=== PATIENT | female | born 1990 | race Caucasian/White ===

== ENCOUNTER → 2017-02-14 | Outpatient (CLI) | payer BC ==
[~2017-02-14] MED LIST: FRRS300 PO; MTR600X PO; OXYC-57 PO; PRENTAB26 PO
[2017-02-14 13:03] LABS: BASO % 0.2 %; BASO ABS # 0.02 K/uL (0-0.2); HEMATOCRIT 33.4 % (37-47); IG% 0.4 %; LYMPH % 17.4 %; LYMPH ABS # 2.18 K/uL (1.2-3.4); MEAN CELL VOLUME 73.6 fL (80-100); MEAN CORPUSCULAR HEMOGLOBIN 22.2 pg (25-34); MEAN CORPUSCULAR HGB CONC 30.2 g/dl (32-36); MEAN PLATELET VOLUME 8.1 fL (7.4-10.4); MONO % 6.6 %; NEUT % 74.4 %; PLATELET COUNT 321 K/uL (130-400); RED BLOOD COUNT 4.54 M/uL (4.2-5.4); WHITE BLOOD COUNT 12.52 K/uL (4.8-10.8)
[2017-02-14 13:22] LABS: COMPLETE YES
== END | disposition home or self-care (01) ==
LOC: C.LAB 12:34
PROVIDERS: ATTEND Obstetrics & Gynecology
DX: Z01.812 Encounter for preprocedural laboratory examination (principal)

== ENCOUNTER 2017-02-15 05:37 | Inpatient (IN) | payer BC ==
[2017-02-15] VITALS (14 sets, daily range): BP systolic 108–122; BP diastolic 68–75; PULSE 85–93; TEMP 36.7–37; O2SAT 96–100; Ht 170.2 cm; Wt 117.9 kg
[~2017-02-15] VITALS: Ht 170.2 cm; Wt 117.9 kg
[~2017-02-15 05:37] MED LIST changes: -FRRS300 PO; -MTR600X PO; -OXYC-57 PO; +PATIENT'S ALLERGY INFO NEEDS ENTERED SCH; -PRENTAB26 PO
[2017-02-15] MEDS ORDERED: CITRIC ACID/SODIUM CITRATE 15 ML UDC PO STA (05:51)
[2017-02-15] MEDS ORDERED: CEFAZOLIN IV 3,000 MG in DEXTROSE 5% 50ML IV SCH (06:00)
[2017-02-15] MEDS ORDERED: LACTATED RINGER'S 1000ML 1,000 ML IV SCH ×2 (06:00→08:54)
[2017-02-15] MEDS ORDERED: CEFAZOLIN IV 3,000 MG in DEXTROSE 5% 50ML 50 ML IV SCH (06:00)
[2017-02-15] MEDS ORDERED: CITRIC ACID/SODIUM CITRATE 15 ML UDC PO SCH (06:00)
[2017-02-15] MEDS ORDERED: PRENTAB26 PO (06:08)
[2017-02-15] MEDS: LACTATED RINGER'S 1000ML 1,000 ML IV SCH ×3 (06:47→07:44)
[2017-02-15 06:49] LABS: BASO % 0.3 %; BASO ABS # 0.03 K/uL (0-0.2); EOS % 1.3 %; HEMATOCRIT 29.7 % (37-47); IG% 0.5 %; LYMPH % 20.5 %; LYMPH ABS # 2.36 K/uL (1.2-3.4); MEAN CELL VOLUME 73.7 fL (80-100); MEAN CORPUSCULAR HEMOGLOBIN 22.3 pg (25-34); MEAN CORPUSCULAR HGB CONC 30.3 g/dl (32-36); MEAN PLATELET VOLUME 8.3 fL (7.4-10.4); NEUT % 71.4 %; PLATELET COUNT 292 K/uL (130-400); RED BLOOD COUNT 4.03 M/uL (4.2-5.4)
[2017-02-15] MEDS ORDERED: MoRPHine SULFATE PF 1 MG/ML 10 ML AMP/VIAL ONE (07:12)
[2017-02-15] MEDS ORDERED: SODIUM CHLORIDE 0.9% 1000ML 1,000 ML IV PRN (07:22)
[2017-02-15] MEDS ORDERED: NALOXONE HCL INJ 1 MG in SODIUM CHLORIDE 0.9% 1000ML 1,000 ML IV PRN ×4 (07:22)
[2017-02-15] MEDS ORDERED: NALOXONE HCL INJ 0.08 MG in SYRINGE 1.8 ML IV PRN (07:22)
[2017-02-15] MEDS ORDERED: LACTATED RINGER'S 1000ML 500 ML IV PRN (07:22)
[2017-02-15] MEDS ORDERED: NALOXONE HCL 0.4 MG/1 ML VIAL/CARP IV PRN (07:30)
[2017-02-15] MEDS ORDERED: PHENYLEPHRINE 100MCG/ML 5ML SYR IV PRN (07:30)
[2017-02-15] MEDS ORDERED: EpHEDrine SULFATE INJ 50 MG/ML AMP IV PRN ×2 (07:30)
[2017-02-15] MEDS ORDERED: ONDANSETRON INJ 2 MG/ML 2 ML VIAL IV PRN ×2 (07:30)
[2017-02-15] MEDS ORDERED: DiphenhydrAMINE HCL 50 MG/ML VIAL IV PRN (07:30)
[2017-02-15] MEDS ORDERED: PROMETHAZINE HCL INJ 12.5 MG in SODIUM CHLORIDE 0.9% 50ML 50 ML IV PRN (07:30)
[2017-02-15] MEDS ORDERED: ATROPINE SULFATE 0.1 MG/ML 5ML SYR IV PRN (07:30)
[2017-02-15] MEDS ORDERED: NALBUPHINE HCL INJ 10 MG/ML AMP IV PRN (07:30)
[2017-02-15] MEDS ORDERED: MoRPHine SULFATE PF 1 MG/ML 10 ML AMP/VIAL EPI PRN (07:30)
[2017-02-15] MEDS ORDERED: MEPERIDINE HCL 25 MG/ML CARP IV PRN ×2 (07:30)
[2017-02-15] MEDS ORDERED: KETOROLAC TROMETHAMINE 30 MG/ML VIAL IV. PRN (07:30)
[2017-02-15] MEDS ORDERED: NO NARCOTICS OR SEDATIVES SCH (07:30)
[2017-02-15] MEDS ORDERED: PROMETHAZINE HCL INJ 25 MG in SODIUM CHLORIDE 0.9% 50ML 50 ML IV PRN (07:30)
[2017-02-15 07:56] LABS: COMPLETE YES
[2017-02-15] MEDS ORDERED: ONDANSETRON INJ 2 MG/ML 2 ML VIAL ONE (07:58)
[2017-02-15] MEDS ORDERED: OXYTOCIN INJ 10 UNITS/ML VIAL ONE ×3 (07:58→08:42)
[2017-02-15] MEDS ORDERED: PROPOFOL IV EMULSION 10 MG/ML 20 ML VIAL IV ONE (07:58)
[2017-02-15] MEDS ORDERED: METOCLOPRAMIDE HCL INJ 5 MG/ML 2 ML VIAL ONE (07:58)
--- NOTE | 2017-02-15 08:59 | [facility] Post Operative Brief Note ---
Immediate Operative Summary Operative Date Feb 15, 2017. Pre-Operative Diagnosis 1. Elective primary caesarean section for suspected macrosomia Post-Operative Diagnosis same Procedure(s) Performed Primary caesarean section with the of a live male child at 0759. Surgeon Dr. Mayorga Pharmacist Critical Care Surgeon(s) Dr. Armstrong Estimated Blood Loss 600 Findings Baby cephalic Normal uterus fallopian tubes and ovaries Specimens A: Placenta-exam B: cord blood Drains montoya 375 Anesthesia Spinal Complication(s) None Disposition L&D
[2017-02-15] MEDS ORDERED: HYDROCORTISONE ACETATE 25 MG SUPP PR PRN (09:00)
[2017-02-15] MEDS: SIMETHICONE 80 MG CHEW PO SCH ×4 (09:00→20:25)
[2017-02-15] MEDS ORDERED: SENNA 8.6 MG TAB PO PRN (09:00)
[2017-02-15] MEDS ORDERED: BENZOCAINE 20% AER SPR 82.5 GM CAN EXT PRN (09:00)
[2017-02-15] MEDS ORDERED: SUPERCREAM 0.870 % 15GM JAR EXT PRN (09:00)
[2017-02-15] MEDS ORDERED: LANOLIN OINT EXT PRN ×2 (09:00)
[2017-02-15] MEDS ORDERED: MEASLES, MUMPS & RUBELLA VIRUS VIAL SQ. ONE (09:00)
[2017-02-15] MEDS ORDERED: DIPHTHERIA/TETANUS/PERTUSSIS 0.5 ML SYR/VIAL IM. ONE (09:00)
[2017-02-15] MEDS ORDERED: MAGNESIUM HYDROXIDE SUSP 30 ML UDC PO PRN (09:00)
[2017-02-15] MEDS: OXYTOCIN INJ 20 UNITS in LACTATED RINGER'S 1000ML 1,000 ML IV SCH ×2 (09:25→18:59)
--- NOTE | 2017-02-15 10:26 | OPERATIVE REPORT ---
DATE OF OPERATION: 02/15/2017 PREOPERATIVE DIAGNOSIS: The patient is a 27-year-old at 39 weeks and 4 days of gestation with suspected macrosomia, desires primary section. POSTOPERATIVE DIAGNOSIS: Same. PROCEDURE: Primary low transverse with Pfannenstiel skin incision. SURGEON: Dr. Batista. BUSINESS SERVICES ASSOCIATE: Dr. Armstrong. ESTIMATED BLOOD LOSS: 600. FLUIDS: 3100 mL of lactated ringer. URINE: Lee drained 375 mL of urine. ANESTHESIA: Spinal, Dr. Limon. COMPLICATIONS: None. FINDINGS: Baby was a viable male delivered at 7:59 a.m. in cephalic presentation, Apgars 8/9. Weight is 4205 grams. Maternal findings: Morbid obesity, normal uterus, fallopian tubes and ovaries. DESCRIPTION OF PROCEDURE: The patient was taken to the operating room where spinal anesthesia was given without difficulty. She was placed in dorsal supine position with a leftward tilt. She was prepared and draped in the usual sterile fashion. A Pfannenstiel skin incision was made and carried through to the underlying layer of fascia with the Bovie. Fascia was incised in the midline and incision extended laterally with the help of Sutherland scissors. Lower aspect of the fascial incision was then grasped with 2 long Marty clamps, elevated, underlying rectus muscles were dissected off sharply with Sutherland scissors and upper aspect of the fascial incision was then grasped with 2 long Marty clamps, elevated, underlying rectus muscles were dissected off sharply with Sutherland scissors. Rectus muscles were in the midline and peritoneum was entered bluntly. Peritoneal incision was extended superiorly and inferiorly with good visualization of the bladder. Bladder blade was inserted. Vesicouterine peritoneum was identified, grasped with pickups, elevated and entered sharply with Metzenbaum scissors and bladder flap was created digitally and bladder blade was reinserted. Lower uterine segment was incised in transverse fashion and incision was extended laterally with the help of fingers. Membranes were ruptured. Clear fluid was obtained and the baby's head was brought to the incision and delivered without difficulty. Shoulders were delivered with minimal traction. Baby was cleaned and dried. Cord clamp was done delayed at 1 minute and cut. The baby was handed to the awaiting carpet installation specialist. Cord blood was obtained and placenta was delivered manually as intact and complete. The uterus was exteriorized and cleared of all clots and debris. The incision was repaired with 0 Vicryl in a running locked fashion. A second imbricating layer was placed on the incision with 0 Vicryl in a running locked fashion. Excellent hemostasis was achieved. The uterus was a returned to the abdomen and pelvis was irrigated with warm normal saline and suctioned. Incision was checked to be hemostatic again. Parietal peritoneum was reapproximated with 3-0 Vicryl in a running fashion. The rectus muscles were checked to be hemostatic. Then the rectus fascia was reapproximated with #1 Vicryl in a running fashion starting from both corners and meeting in the midline. The subcuticular fat tissue was reapproximated with 2-0 plain catgut with large needle with single interrupted stitches. The skin was closed with 4-0 Monocryl in a subcuticular fashion. The patient tolerated the procedure well. Sponge, lap, needle and instrument counts were correct x3. She was given 3 grams of cefazolin before surgery. She was taken to the recovery room in stable condition. No complications happened and I was present during whole procedure. I attest to the content of the Intraoperative Record and any orders documented therein. Any exceptions are noted below. ADDY
[2017-02-15] MEDS ORDERED: CEFAZOLIN IV 3,000 MG in DEXTROSE 5% 50ML 50 ML IV ONE (15:00)
--- NOTE | 2017-02-15 16:40 | Anesthesiology Progress Note ---
Anesthesia Post Op Note Date & Time Feb 15, 2017 at 16:39 Vital Signs Pain Intensity: 0.0 Vital Signs Past 12 Hours Date Time Temp Pulse Resp B/P Pulse Ox O2 Delivery O2 Flow Rate FiO2 02/15/17 14:15 18 97 02/15/17 13:15 16 96 02/15/17 12:15 18 99 02/15/17 11:15 18 99 02/15/17 11:15 99 Room Air 02/15/17 11:15 36.7 87 18 111/68 99 Room Air Notes Mental Status: alert / awake / arousable, participated in evaluation Pt Amnestic to Procedure: Yes Nausea / Vomiting: adequately controlled Pain: adequately controlled Airway Patency, RR, SpO2: stable & adequate BP & HR: stable & adequate Hydration State: stable & adequate Anesthetic Complications: no major complications apparent
[2017-02-15] MEDS: KETOROLAC TROMETHAMINE 30 MG/ML VIAL IV. PRN ×2 (17:34→23:18)
[2017-02-15] MEDS: FERROUS SULFATE 325 MG TAB PO SCH (20:25)
[2017-02-15] MEDS: DOCUSATE SODIUM 100 MG CAP PO SCH (20:28)
[2017-02-16] MEDS ORDERED: DC INTRASPINAL MORPHINE SCH
[2017-02-16 00:01] VITALS: O2SAT 98
[2017-02-16] MEDS ORDERED: MEPERIDINE HCL 50 MG/ML CARP IV PRN (00:01)
[2017-02-16] MEDS ORDERED: KETOROLAC TROMETHAMINE 30 MG/ML VIAL IV. PRN (00:01)
[2017-02-16] MEDS ORDERED: DiphenhydrAMINE HCL 50 MG/ML VIAL IV PRN (00:01)
[2017-02-16] MEDS ORDERED: MEPERIDINE HCL 75 MG/ML CARP IV PRN (00:01)
[2017-02-16] MEDS ORDERED: ONDANSETRON INJ 2 MG/ML 2 ML VIAL IV PRN (00:01)
[2017-02-16] MEDS ORDERED: PROMETHAZINE HCL INJ 25 MG in SODIUM CHLORIDE 0.9% 50ML 50 ML IV PRN (00:01)
[2017-02-16] MEDS ORDERED: ZOLPIDEM TARTRATE 5 MG TAB PO PRN (00:01)
[2017-02-16] MEDS ORDERED: OXYCODONE/ACETAMINOPHEN 5-325 TAB PO PRN (00:01)
[2017-02-16 04:20] VITALS: BP 116/77; PULSE 94; TEMP 36.7; O2SAT 97
[2017-02-16] MEDS: OXYCODONE/ACETAMINOPHEN 5-325 TAB PO PRN ×5 (04:44→21:33)
[2017-02-16] MEDS: IBUPROFEN 600 MG TAB PO PRN ×5 (04:44→21:32)
[2017-02-16 07:28] LABS: BASO % 0.1 %; BASO ABS # 0.02 K/uL (0-0.2); EOS % 0.9 %; HEMATOCRIT 26.7 % (37-47); IG% 0.4 %; LYMPH % 14.1 %; MEAN CELL VOLUME 74.8 fL (80-100); MEAN CORPUSCULAR HEMOGLOBIN 22.1 pg (25-34); MEAN CORPUSCULAR HGB CONC 29.6 g/dl (32-36); MEAN PLATELET VOLUME 8.2 fL (7.4-10.4); NEUT % 77.5 %; PLATELET COUNT 245 K/uL (130-400); RED BLOOD COUNT 3.57 M/uL (4.2-5.4); WHITE BLOOD COUNT 13.52 K/uL (4.8-10.8)
[2017-02-16 07:54] LABS: COMPLETE YES
[2017-02-16 08:00] VITALS: BP 101/68; PULSE 80; TEMP 36.8
[2017-02-16] MEDS ORDERED: FERROUS SULFATE 325 MG TAB PO SCH (08:00)
[2017-02-16] MEDS: FERROUS SULFATE 325 MG TAB PO SCH ×2 (08:09→19:49)
[2017-02-16] MEDS: DOCUSATE SODIUM 100 MG CAP PO SCH ×2 (08:09→19:49)
[2017-02-16] MEDS: SIMETHICONE 80 MG CHEW PO SCH ×4 (08:10→19:49)
[2017-02-16] MEDS: PRENATAL VITAMIN TAB PO SCH (08:59)
--- NOTE | 2017-02-16 10:22 | OB/GYN Progress Note ---
H[employer] INSPECTOR Progress Note Date of Service Feb 16, 2017. Subjective conversation w/ patient, physical exam Ambulation: ambulating normally Voiding: no voiding problems Diet Tolerance: Regular Diet Feeding Type: Breast Feeding Review of Systems Constitutional: No chills, No fatigue, No fever, No problem reported, No sweats , No weakness, No weight loss Respiratory: No cough, No dyspnea at rest, No dyspnea on exertion, No hemoptysis, No problem reported, No shortness of breath, No sputum, No wheezing Cardiac: No PND, No chest pain, No claudication, No edema, No orthopnea, No palpitations, No problem reported Breast: No breast lump, No breast pain, No change in shape, No nipple discharge , No problem reported, No see HPI Abdomen: No GI bleeding, No constipation, No diarrhea, No nausea, No pain, No problem reported, No vomiting Female : No abnormal vaginal bleeding, No dysuria, No hematuria, No incontinence, No problem reported, No see HPI, No urinary frequency, No vaginal discharge Objective Vital Signs Date Time Temp Pulse Resp B/P Pulse Ox O2 Delivery O2 Flow Rate FiO2 02/16/17 08:00 36.8 80 16 101/68 Room Air 02/16/17 08:00 Room Air 02/16/17 04:20 36.7 94 20 116/77 97 Room Air 02/16/17 00:01 20 98 02/15/17 23:15 98 Room Air 02/15/17 23:15 36.8 85 20 108/72 98 Room Air 02/15/17 23:15 20 98 02/15/17 22:10 16 96 02/15/17 21:10 20 98 02/15/17 20:05 36.8 87 18 113/74 99 Room Air 02/15/17 19:15 18 97 02/15/17 18:15 18 98 02/15/17 17:15 18 98 02/15/17 16:15 18 100 02/15/17 15:50 99 Room Air 02/15/17 15:50 37.0 93 18 122/75 99 Room Air 02/15/17 15:15 18 98 02/15/17 14:15 18 97 02/15/17 13:15 16 96 02/15/17 12:15 18 99 02/15/17 11:15 18 99 4/18/17 11:15 99 Room Air 02/15/17 11:15 36.7 87 18 111/68 99 Room Air Physical Exam General Appearance: WELL-APPEARING, WD/WN, NO APPARENT DISTRESS Respiratory/Chest: chest non-tender, lungs clear, normal breath sounds, no respiratory distress, no accessory muscle use Cardiovascular: regular rate, rhythm, no edema, no gallop, no JVD, no murmur Abdomen: normal bowel sounds, non tender, soft, no organomegaly, no pulsatile mass Fundus: Firm Incision Description: Clean, Dry & Intact Extremities: normal range of motion, non-tender, normal inspection, no pedal edema, no calf tenderness Laboratory Results Last 24 Hours Test 02/16/17 06:50 White Blood Count 13.52 K/uL Red Blood Count 3.57 M/uL Hemoglobin 7.9 g/dL Hematocrit 26.7 % Mean Corpuscular Volume 74.8 fL Mean Corpuscular Hemoglobin 22.1 pg Mean Corpuscular Hemoglobin Concent 29.6 g/dl Platelet Count 245 K/uL Mean Platelet Volume 8.2 fL Neutrophils (%) (Auto) 77.5 % Lymphocytes (%) (Auto) 14.1 % Monocytes (%) (Auto) 7.0 % Eosinophils (%) (Auto) 0.9 % Basophils (%) (Auto) 0.1 % Neutrophils # (Auto) 10.47 K/uL Lymphocytes # (Auto) 1.90 K/uL Monocytes # (Auto) 0.95 K/uL Eosinophils # (Auto) 0.12 K/uL Basophils # (Auto) 0.02 K/uL RDW Standard Deviation 45.3 fL RDW Coefficient of Variation 16.4 % Immature Granulocyte % (Auto) 0.4 % Immature Granulocyte # (Auto) 0.06 K/uL Red Blood Cell Morphology Unremarkable Assessment and Plan Post-Op Day Number: 1 Continue Routine Care: Continue with Day #1 care
[2017-02-16 15:30] VITALS: BP 108/70; PULSE 93; TEMP 36.5
[2017-02-16] MEDS ORDERED: BISACODYL 5 MG TABEC PO ONE (22:00)
[2017-02-16 23:45] VITALS: BP 99/63; PULSE 83; TEMP 36.4; O2SAT 96
[2017-02-17] MEDS: IBUPROFEN 600 MG TAB PO PRN ×2 (04:38→08:30)
[2017-02-17] MEDS: OXYCODONE/ACETAMINOPHEN 5-325 TAB PO PRN ×2 (04:38→08:32)
[2017-02-17 06:08] LABS: HEMATOCRIT 24.6 % (37-47)
[2017-02-17] MEDS ORDERED: BISACODYL 10 MG SUPP PR PRN (07:00)
[2017-02-17] MEDS: FERROUS SULFATE 325 MG TAB PO SCH (08:26)
[2017-02-17] MEDS: PRENATAL VITAMIN TAB PO SCH (08:27)
[2017-02-17] MEDS: DOCUSATE SODIUM 100 MG CAP PO SCH (08:27)
[2017-02-17] MEDS: SIMETHICONE 80 MG CHEW PO SCH ×2 (08:31→12:30)
[2017-02-17 08:36] VITALS: BP 112/73; PULSE 85; TEMP 37; O2SAT 96
[2017-02-17 09:13] VITALS: BP 112/73; PULSE 85; TEMP 37; O2SAT 96
[2017-02-17] MEDS ORDERED: MTR600X PO (09:55)
[2017-02-17] MEDS ORDERED: OXYC-57 PO (09:55)
--- NOTE | 2017-02-17 09:57 | Discharge Instructions ---
Discharge Instructions Date of Service Feb 17, 2017. Admission Reason for Admission: [place] Discharge Discharge Diagnosis / Problem: term delivered Discharge Goals Goal(s): Routine recovery after , Continuing SALES PERSON care Activity Recommendations Activity Limitations: as noted below Lifting Limitations: no more than 10 pounds Exercise/Sports Limitations: until after follow-up appointment May Resume Sexual Activity: after follow-up appointment Shower/Bathe: no limitations Driving or Machine Use: . Instructions / Follow-Up Instructions / Follow-Up ACTIVITY RECOMMENDATIONS: * Gradual return to full activity over the next 2-3 weeks. * No lifting - nothing heavier than baby over the next 2-3 weeks. * Do not engage in vigorous exercise, sexual activity or sports until cleared by your physician. * Do not drive or operate any motorized equipment until cleared by your physician. * You may shower/bathe daily. BREAST CARE: If you are not breast feeding: * Wear a supportive bra 24 hours a day for one to two weeks. * Avoid stimulating your breasts and nipples as much as possible during the first few weeks after delivery. * When taking a shower, have the warm water hit your back, not breasts. * When your breasts feel full, apply ice packs. Usually three to four times a day helps ease the discomfort. * Take a mild pain medication (Tylenol/Motrin) when you are uncomfortable. If breast feeding: * Use breast milk to lubricate nipples. Lansinoh cream may be used for sore nipples. You do not need to remove cream prior to breast feeding. If using a different brand of cream, check the label for directions regarding removal of cream prior to nursing. * Wear a supportive bra. * If having problems with breasts or breast feeding, call a managed services consultant or your health care provider. OVER THE COUNTER MEDICATION: * For discomfort or pain, you may use Acetaminophen (Tylenol), Ibuprofen (Advil ), or Naproxen (Aleve) following the package directions. * For constipation you may use Colace following the package directions. SPECIAL CARE INSTRUCTIONS: When you are discharged from the hospital, it is important for you to follow the instructions listed below: * During the first week at home, you should be able to care for yourself and your baby. In addition, the usual light household activities are encouraged. * Limit your activities to the way you feel. Do not try to clean the house or move furniture. Be sensible. * If you actively engage in sports and have done so up until the time of your delivery, you may resume these activities as soon as you feel able. This may take up to one month or even longer. Use good judgment. * Continue to take your vitamins for at least six weeks after the of your baby. * Your diet need not be limited unless you were on a special diet before your delivery. Breast-feeding mothers need around 2500 calories per day and at least 64-80 ounces of fluid per day (8 to 10 glasses). * You should eat foods from the four major food groups. Crash diets or fad diets are to be avoided. Eating lean meats, fresh fruits and vegetables, low-fat dairy products, high fiber foods and a regular exercise program, will help you get back to your pre- weight without putting your health at risk. * Constipation is sometimes a problem after delivery. Take a mild laxative as needed. If breast feeding, Milk of Magnesia is acceptable to use. You may use a suppository or Fleets enema if no episiotomy. * A daily shower or tub bath is suggested. Be sure to thoroughly and gently dry the perineum. * A bloody vaginal discharge will usually continue until around four weeks post . A small amount of bleeding may continue for as long as six weeks. Vaginal discharge changes from the bright red bleeding after delivery to pink then brownish and finally yellowish-pink before becoming white and disappearing. * Bleeding may increase with activity. Your first period may come in 4-8 weeks. If you are breast feeding, your period may be delayed even longer. * [place] (sex) can begin whenever both you and your partner feel comfortable and do not have any form of genital infection. It is recommended that you wait at least six weeks for internal and external healing to occur. If you have questions, please talk to your health care practitioner. A condom should be used to prevent infection and . * Foreplay, gentle intercourse and lubrication is very important the first several times to prevent pain. A water-based lubricant such as K-Y jelly or Astroglide may be used. * Tampons and/or Douching should be avoided until after six weeks check-up. * If you have RH negative blood and your baby is RH positive, you will receive RHOGAM by injection prior to discharge. The nurse will give you a card to keep with you that has the date and place that you received RHOGAM after delivery. * During your care, you had a Rubella screen done to check for the presence of rubella antibodies in your blood. If your test was negative, you will receive a Rubella vaccine prior to discharge. This vaccine may cause a fever, soreness at the injection site and flu-like symptoms. If these symptoms persist, notify your health care practitioner. is not advised for three months after a Rubella vaccine. * Verbalizes understanding of car seat law as reviewed with patient nursing. * Car Seat hand-out given and reviewed with patient by nursing. * Shaken baby information reviewed with patient by nursing. Call you doctor if: * Heavy bleeding (saturating several pads an hour) or passing clots the size of your fist. * A fever >101 degrees F (38.3 degrees C) on two occasions four hours apart and /or chills. * Unusual pain in the pelvic or vaginal areas. Pain should improve each day . * Call the doctor for any increased redness, drainage or swelling around the incision and any pain unrelieved by prescribed pain medication. * Any signs or symptoms of phlebitis (possible blood clots forming in the veins ): leg pain, warm, red or swollen area on leg. * "Baby Blues" lasting longer than two weeks. If you have any questions or concerns, call your health care practitioner at . FOLLOW-UP VISIT: * Incision check (staple removal) in 1 week. Please call doctor's office at to set up appointment. * Please call the office at to schedule a 6 week examination. It is important you keep this appointment. * It is important for you to make arrangements for either yearly or twice yearly check-ups thereafter. Current Hospital Diet Patient's current hospital diet: Vegetarian Diet Discharge Diet Recommended Diet: Regular OB Diet Fluid Restriction: None Procedures Procedures Performed: Primary caesarean section with the of a live male child at 0759. Pending Studies Studies pending at discharge: no Medical Emergencies . Who to Call and When: Medical Emergencies: If at any time you feel your situation is an emergency, please call [phone] immediately. . Non-Emergent Contact Non-Emergency issues call your: Primary Care Provider . . "Provider Documentation" section prepared by Thomas Armstrong. . VTE Core Measure Inpt VTE Proph given/why not?: Treatment not indicated
--- NOTE | 2017-02-17 09:58 | Surgery Progress Note ---
Surgery Progress Note Date of Service Feb 17, 2017. Subjective Post OP Day: 2 + ambulating, + feeling well, + flatus, + pain controlled Objective Vital Signs: Date Time Temp Pulse Resp B/P Pulse Ox O2 Delivery O2 Flow Rate FiO2 02/17/17 09:13 37.0 85 16 112/73 96 Room Air 02/17/17 08:40 Room Air 02/17/17 08:36 37.0 85 16 112/73 96 Room Air 02/16/17 23:45 36.4 83 18 99/63 96 Room Air 02/16/17 23:45 96 Room Air 02/16/17 15:30 36.5 93 18 108/70 Room Air 02/16/17 15:30 Room Air General Appearance: no apparent distress Abdomen: non tender, non distended, soft Incision(s): clean, dry, intact Extremities: non-tender, normal inspection, no pedal edema, no calf tenderness Laboratory Results: Results Past 24 Hours Test 02/17/17 05:50 Range/Units Hemoglobin 7.3 12.0-16.0 g/dL Hematocrit 24.6 37-47 % Assessment & Plan regular diet discharged
[2017-02-17] MEDS ORDERED: FRRS300 PO (09:59)
[2017-02-17 14:05] VITALS: BP_DIAS 73; PULSE 85; TEMP 37
--- NOTE | 2017-02-19 11:13 | DISCHARGE SUMMARY ---
DETAILS OF ADMISSION: The patient is a 27-year-old G1, P0 at 39 weeks and 4 days of gestation who was scheduled for an elective primary for suspected macrosomia. She was admitted and had surgery on 02/15/2007 and delivered a viable male , Apgars 8/9 abd weight was 4205 grams. Her surgery was uncomplicated. See dictated op note for details. On postop period, the patient did well. Vital signs stable, afebrile. Urine output was good. She was monitored continuously. On postop day #1 she was doing well, ambulating, passing gas. Pain was under control with medications. Vital signs stable, afebrile. Urine output was adequate. Her H\T\H was 7.9/26.7. Her physical exam was unremarkable. Incision was clean, dry and intact. The bleeding was minimal. She was advanced to regular diet. On postop day #2, the patient was doing well, no complaints. She wanted to go home. Her vital signs stable, afebrile. She was ambulating, tolerating regular diet, passing gas and her physical exam was unremarkable. Her incision was clean, dry and intact. Fundus was firm. Bleeding was minimal. Her H\T\H was 7.4/24.6. She was asymptomatic. The patient desired to go home. She was given prescriptions for pain and iron. Instructions were given when to call. She is to be seen in a week in the office for incision check. All questions were answered. ADDY
== END 2017-02-17 14:00 | disposition home or self-care (01) | DRG 765 ==
LOC: C.LD 05:37 → C.OBG 11:05 → EDSTATUS 12:24
PROVIDERS: ADMIT Obstetrics & Gynecology; ATTEND Obstetrics & Gynecology
PROC: 10D00Z1 Extraction of Products of Conception, Low, Open Approach (ICD-10-PCS; principal; 2017-02-15 07:30)
DX: O36.63X0 Maternal care for excessive fetal growth, third trimester, not applicable or unspecified (principal); Z68.41 Body mass index [BMI] 40.0-44.9, adult; Z37.0 Single live birth; O99.214 Obesity complicating childbirth; E66.01 Morbid (severe) obesity due to excess calories; Z3A.39 39 weeks gestation of pregnancy